=== PATIENT | male | born 1980 | race Hispanic/Latino ===

== ENCOUNTER 2021-04-02 16:41 | Outpatient (CLI) | payer OTHER | END 2021-04-02 16:42 | disposition home or self-care (01) | LOC: BURRAD 16:41 | PROVIDERS: ATTEND Family Medicine | DX: R05.9 Cough, unspecified (principal) | CPT/HCPCS: 71046 ==

== ENCOUNTER 2022-01-16 14:17 | Emergency (ER) | payer SELFPAY | END 2022-01-16 16:01 | disposition home or self-care (01) | LOC: BURERS 14:17 | DX: K64.4 Residual hemorrhoidal skin tags (principal); I10 Essential (primary) hypertension; Z79.899 Other long term (current) drug therapy | CPT/HCPCS: 99283 ==